=== PATIENT | male | born 1945 | race American Indian/Alaskan Native ===

== ENCOUNTER → 2018-03-17 | Day surgery (SDC) | payer MEDICARE, OTHER ==
[~2018-03-17] MED LIST: Midazolam 1 MG/ML 2 ML SDV IV ONE; Midazolam 1 MG/ML 2 ML SDV ONE; Sodium Chloride 0.9% 10 ML Syringe FLUSH PRN; fentaNYL 100 MCG/2 ML SDV IV ONE; fentaNYL 100 MCG/2 ML SDV ONE
[2018-03-17] MEDS: fentaNYL 100 MCG/2 ML SDV IV ONE ×2 (07:54→07:55)
[2018-03-17] MEDS: Midazolam 1 MG/ML 2 ML SDV IV ONE ×2 (07:55→07:56)
[2018-03-17] MEDS: Dextrose 5%-0.45% NaCl 1,000 ML IV SCH (08:11)
--- NOTE | 2018-03-17 10:20 | OR ---
DATE: 03/17/2018 PROCEDURE: Total colonoscopy. INSTRUMENT USED: CF-H180AL Olympus video colonoscope. PREMEDICATIONS: Fentanyl 100 mcg intravenous, Versed 2 mg intravenous. Nasal O2 cannula. The procedure was done under pulse oximetry, BP recording, and mini bar attendant. INDICATION: The patient with rectal bleeding. Colonoscopic examination is done for detection of any polypoid lesions and removal. Endoscopic hemostasis therapy if needed. DESCRIPTION OF PROCEDURE: Initial rectal exam was unremarkable. Rigid anoscopy showed small internal hemorrhoids without bleeding from them. The colonoscope was passed with ease. Diverticula were noted including one at the proximal ascending colon. No stricture. No vascular ectasia. No large isolated ulcerations seen. No evidence of diffuse inflammatory bowel disease in the form of friability, contact bleeding, or ulcerations. No polyp or tumor mass identified. The scope was passed with ease up to the ileocecal area. Photographs were taken of the normal-appearing cecum identified by landmarks of appendiceal orifice and double-bulged ileocecal folds. No bleeding was noted from any of the visualized areas at the commencement of the examination. There was moderate amount of fecal material that had to be aspirated clear. Probing the proximal sides of folds and flexures, using adequate distention and clearing up the stool material, withdrawal of the scope was made. [id number] time over 6 minutes. No bleeding was noted at the time of completion of examination. IMPRESSION: 1. Internal hemorrhoids. 2. Diverticulosis. The patient tolerated the procedure well. [facility] /[id number]
[2018-03-17 11:07] VITALS: BP 104/51
--- NOTE | 2018-03-17 13:47 | LETTER ---
03/17/[address] [facility] [address] [place] [address] RE: KEATON REEVES : [address] Leal: Mr. Keaton Reeves had a colonoscopic examination done this morning and he tolerated the procedure well. I herewith send a copy of the endoscopy note and photographs for your review. Thank you. Sincerely, [facility] /[id number]
== END ==
LOC: DL.ENDO 07:08
PROVIDERS: ATTEND Internal Medicine Gastroenterology
DX: K62.5 Hemorrhage of anus and rectum (principal); K57.30 Diverticulosis of large intestine without perforation or abscess without bleeding; K64.8 Other hemorrhoids; E11.9 Type 2 diabetes mellitus without complications; E78.5 Hyperlipidemia, unspecified; I10 Essential (primary) hypertension; N52.9 Male erectile dysfunction, unspecified; Z88.0 Allergy status to penicillin; Z80.0 Family history of malignant neoplasm of digestive organs; Z79.82 Long term (current) use of aspirin; Z79.84 Long term (current) use of oral hypoglycemic drugs; Z79.899 Other long term (current) drug therapy
CPT/HCPCS: 45378; J2250; J3010; J7042

== ENCOUNTER 2018-04-01 19:25 | Emergency (ER) | payer MEDICARE, OTHER ==
[2018-04-01] MEDS ORDERED: Azithromycin 250 MG Tab PO ONE (22:21)
--- NOTE | 2018-04-01 22:24 | EDM.PDOC ---
ED HPI GENERAL MEDICAL PROBLEM - General Chief Complaint: ENT Problem Stated Complaint: STREP THORAT? [id number] Time Seen by Provider: 04/01/18 22:22 Source of Information: Reports: Patient History Limitations: Reports: No Limitations - History of Present Illness INITIAL COMMENTS - FREE TEXT/NARRATIVE: sore throat hard to swallow Throat Pain Score (Numeric/FACES): 8 - Related Data Allergies Allergy/AdvReac Type Severity Reaction Status Date / Time Penicillins Allergy Cannot Verified 03/17/18 07:37 Remember Home Meds: Home Meds Aspirin [[place] Aspirin] 81 mg PO DAILY 11/06/15 [History] Latanoprost [Xalatan 0.005% Ophth Soln] 1 drop EYEBOTH BEDTIME 11/06/15 [History ] Lisinopril 40 mg PO DAILY 11/06/15 [History] hydroCHLOROthiazide [Hydrochlorothiazide] 50 mg PO DAILY 11/06/15 [History] metFORMIN HCl [Metformin HCl] 500 mg PO BID 11/06/15 [History] Simvastatin 20 mg PO BEDTIME 03/15/18 [History] Past Medical History HEENT History: Reports: Cataract, Glaucoma, Other (See Below) Other HEENT History: mild hearing loss Cardiovascular History: Reports: High Cholesterol, Hypertension Respiratory History: Reports: None Genitourinary History: Reports: None Musculoskeletal History: Reports: None Neurological History: Reports: None Psychiatric History: Reports: None Endocrine/Metabolic History: Reports: Diabetes, Type II Hematologic History: Reports: None Immunologic History: Reports: None Oncologic (Cancer) History: Reports: None Dermatologic History: Reports: None - Past Surgical History Head Surgeries/Procedures: Reports: None HEENT Surgical History: Reports: None Cardiovascular Surgical History: Reports: Other (See Below) Other Cardiovascular Surgeries/Procedures: stress test last 2016 Respiratory Surgical History: Reports: None Male Surgical History: Reports: None Endocrine Surgical History: Reports: None Neurological Surgical History: Reports: None Musculoskeletal Surgical History: Reports: None Oncologic Surgical History: Reports: None Dermatological Surgical History: Reports: None Social & Family History - Family History Family Medical History: Noncontributory - Tobacco Use Smoking Status *Q: Never Smoker - Caffeine Use Caffeine Use: Reports: Coffee Caffeine Use Comment: several cups daily - Recreational Drug Use Recreational Drug Use: No ED ROS ENT - Review of Systems Review Of Systems: ROS reveals no pertinent complaints other than HPI. ED EXAM, ENT - Physical Exam Exam: See Below Exam Limited By: No Limitations General Appearance: Alert, WD/WN, Mild Distress, Other (discomfort) Ears: Hearing Grossly Normal Mouth/Throat: Pharyngeal Erythema, Tonsillar Erythema, Tonsillar Swelling Head: Atraumatic Neck: Non-Tender, Full Range of Motion Respiratory/Chest: No Respiratory Distress Cardiovascular: Regular Rate, Rhythm GI/Abdominal: Soft, Non-Tender Neurological: Alert, Oriented, Normal Cognition, Normal Gait, No Motor/Sensory Deficits Psychiatric: Normal Affect, Normal Mood Skin: Warm, Dry, Normal Color Lymphatic: No Adenopathy Course - Vital Signs Last Recorded V/S: Last Vital Signs Temp 36.1 C 04/01/18 21:46 Pulse 77 04/01/18 21:46 Resp 14 04/01/18 21:46 BP 154/87 H 04/01/18 21:46 Pulse Ox 99 04/01/18 21:46 - Orders/Labs/Meds Orders: Active Orders 24 hr Category Date Time Status CULTURE STREP A CONFIRMATION [RM] Stat Lab 04/01/18 21:37 Results STREP SCRN A RAPID W CULT CONF [RM] Stat Lab 04/01/18 21:37 Results Azithromycin [Zithromax] Med 04/01/18 22:21 Once 500 mg PO ONETIME ONE Departure - Departure Time of Disposition: 22:23 Disposition: Home, Self-Care 01 Condition: Good Clinical Impression: Tonsillitis - Discharge Information Instructions: Tonsillitis, [id number] Additional Instructions: 1) no solid foods for 4 to 5 days 2) have popsicle, jello, juice, soups, milk shakes 3) follow up at clinic rx given; [id number] - My Orders Last 24 Hours: My Active Orders 04/01/18 21:37 CULTURE STREP A CONFIRMATION [RM] Stat STREP SCRN A RAPID W CULT CONF [RM] Stat 04/01/18 22:21 Azithromycin [Zithromax] 500 mg PO ONETIME ONE - Assessment/Plan Last 24 Hours: My Active Orders 04/01/18 21:37 CULTURE STREP A CONFIRMATION [RM] Stat STREP SCRN A RAPID W CULT CONF [RM] Stat 04/01/18 22:21 Azithromycin [Zithromax] 500 mg PO ONETIME ONE
[2018-04-01 22:36] VITALS: BP 126/76
== END 2018-04-01 22:37 | disposition home or self-care (01) ==
LOC: DL.ED 19:25
DX: J03.90 Acute tonsillitis, unspecified (principal); I10 Essential (primary) hypertension; E11.9 Type 2 diabetes mellitus without complications; Z79.82 Long term (current) use of aspirin; Z79.84 Long term (current) use of oral hypoglycemic drugs; Z79.899 Other long term (current) drug therapy; Z88.0 Allergy status to penicillin
CPT/HCPCS: 87081; 87430; 99283; A9270

== ENCOUNTER 2018-10-26 19:15 | Emergency (ER) | payer BC, MEDICARE ==
--- NOTE | 2018-10-26 19:58 | EDM.PDOC ---
<SamaniegoZena - Last Filed: 10/26/18 20:48> ED HPI GENERAL MEDICAL PROBLEM - General Chief Complaint: Neck Problem Stated Complaint: NECK HURTING,COUGHING KENTRELL [id number] Time Seen by Provider: 10/26/18 19:48 - History of Present Illness INITIAL COMMENTS - FREE TEXT/NARRATIVE: Patient presenting to the ED for neck and cough. Reports neck pain started 2 weeks ago, reports it started after he slipped and fell on the ice. reports it is intermittent squeezing left lateral neck pain, 7/10 severity, non radiating, alleviated with tylenol and aggravated by turning the head to the right. Also reports having dry cough for past few months. Cough is worse when exposed to cigarette smoke. No other known alleviators or aggravators. Denies fever, chills, n/v, nasal congestion, vision change, nausea, vomiting, headaches, dizziness, numbness, weakness, chest pain,wheezing or sob. No other concerns. Onset: Gradual Location: Reports: Neck Neck Pain Score (Numeric/FACES): 10 - Related Data Allergies Allergy/AdvReac Type Severity Reaction Status Date / Time Penicillins Allergy Cannot Verified 10/26/18 19:32 Remember Home Meds: Home Meds Aspirin [[place] Aspirin] 81 mg PO DAILY 11/06/15 [History] Latanoprost [Xalatan 0.005% Ophth Soln] 1 drop EYEBOTH BEDTIME 11/06/15 [History ] Lisinopril 40 mg PO DAILY 11/06/15 [History] hydroCHLOROthiazide [Hydrochlorothiazide] 50 mg PO DAILY 11/06/15 [History] metFORMIN HCl [Metformin HCl] 500 mg PO BID 11/06/15 [History] Simvastatin 20 mg PO BEDTIME 03/15/18 [History] Past Medical History HEENT History: Reports: Cataract, Glaucoma, Other (See Below) Other HEENT History: mild hearing loss Cardiovascular History: Reports: High Cholesterol, Hypertension Respiratory History: Reports: None Genitourinary History: Reports: None Musculoskeletal History: Reports: None Neurological History: Reports: None Psychiatric History: Reports: None Endocrine/Metabolic History: Reports: Diabetes, Type II Hematologic History: Reports: None Immunologic History: Reports: None Oncologic (Cancer) History: Reports: None Dermatologic History: Reports: None - Past Surgical History Head Surgeries/Procedures: Reports: None HEENT Surgical History: Reports: None Cardiovascular Surgical History: Reports: Other (See Below) Other Cardiovascular Surgeries/Procedures: stress test last year 2016 Respiratory Surgical History: Reports: None Male Surgical History: Reports: None Endocrine Surgical History: Reports: None Neurological Surgical History: Reports: None Musculoskeletal Surgical History: Reports: None Oncologic Surgical History: Reports: None Dermatological Surgical History: Reports: None Social & Family History - Family History Family Medical History: Noncontributory - Tobacco Use Smoking Status *Q: Never Smoker - Caffeine Use Caffeine Use: Reports: Coffee, Soda Caffeine Use Comment: several cups daily - Recreational Drug Use Recreational Drug Use: No ED ROS GENERAL - Review of Systems Review Of Systems: ROS reveals no pertinent complaints other than HPI. ED EXAM, UPPER BACK/NECK PAIN - Physical Exam Exam Limited By: No Limitations General Appearance: Alert, WD/WN, No Apparent Distress Eye Exam: Bilateral Eye: EOMI, Normal Inspection Ears Exam: Normal External Exam Nose Exam: Normal Inspection Throat/Mouth Exam: Normal Inspection Head Exam: Atraumatic, Normocephalic Neck Exam: Tender Lateral, Other (no midline tenders, no pain w flexion or extension of the neck. Pain in left neck w right rotation of head) Cardiovascular/Respiratory: Regular Rate, Rhythm, Normal Breath Sounds, No Respiratory Distress, Other (no wheezing on rales on exam) Extremities: Normal Inspection, Normal Range of Motion, Non-Tender Neurologic: agricultural researcher II-XII nml As Tested, No Motor/Sensory Deficits, Alert, Normal Mood/Affect, Oriented x 3 Psychiatric: Normal Affect, Normal Mood Skin Exam: Normal Color Course - Vital Signs Last Recorded V/S: Last Vital Signs Temp 98.5 F 10/26/18 19:32 Pulse 100 10/26/18 19:32 Resp 22 H 10/26/18 19:32 BP 143/68 H 10/26/18 19:32 Pulse Ox 100 10/26/18 19:32 - Orders/Labs/Meds Orders: Active Orders 24 hr Category Date Time Status Orphenadrine [Norflex] Med 10/26/18 20:30 Active 60 mg IM Q12H Medication Orders Orphenadrine Citrate (Norflex) 60 mg IM Q12H [facility] Last Admin: 10/26/18 20:24 Dose: 60 mg Meds: Medications Generic Name Dose Route Start Last Admin Trade Name Freq PRN Reason Stop Dose Admin Orphenadrine Citrate 60 mg 10/26/18 20:30 10/26/18 20:24 Norflex IM 60 mg Q12H ARIELLE Administration Discontinued Medications Generic Name Dose Route Start Last Admin Trade Name Jimmy PARKSN Reason Stop Dose Admin Ketorolac Tromethamine 30 mg 10/26/18 20:17 10/26/18 20:25 Toradol IM 10/26/18 20:18 30 mg ONETIME ONE Administration - Re-Assessments/Exams Free Text/Narrative Re-Assessment/Exam: 10/26/18 20:19 will treat patient with Toradol and Norflex. 10/26/18 20:42 patient states his neck pain significantly improved with the above treatment. Pt requesting to be discharged. Departure - Departure Disposition: Home, Self-Care 01 Condition: Good Clinical Impression: Muscle spasm - Discharge Information *PRESCRIPTION DRUG MONITORING PROGRAM REVIEWED*: No *COPY OF PRESCRIPTION DRUG MONITORING REPORT IN PATIENT SYLVESTER: Not Applicable Instructions: Muscle Cramps and Spasms, Cervical Sprain, [id number] Forms: ED Department Discharge Additional Instructions: Take ibuprofen for neck pain. May take Flexeril to help relax the neck muscle. Flexeril can make you drowsy/tired, avoid taking flexeril if you are going to be operating machinery or equipment. Cough etiology could be due to ACEi, discuss switching HTN medication with PCP. Follow up with PCP within 1 week. Return to ED if symptoms do not improve or worsen. Patient agrees with the above plan. - My Orders Last 24 Hours: My Active Orders 10/26/18 20:30 Orphenadrine [Norflex] 60 mg IM Q12H - Assessment/Plan Last 24 Hours: My Active Orders 10/26/18 20:30 Orphenadrine [Norflex] 60 mg IM Q12H <Jana Titus - Last Filed: 10/26/18 20:51> ED ROS GENERAL - Review of Systems Review Of Systems: ROS reveals no pertinent complaints other than HPI. ED EXAM, UPPER BACK/NECK PAIN - Physical Exam Exam: See Below Course - Re-Assessments/Exams Free Text/Narrative Re-Assessment/Exam: 10/26/18 20:50 I saw and evaluated the patient. Discussed with resident and agree with resident s findings and plan as documented in the residents note. Departure - Departure Time of Disposition: 20:48
[2018-10-26] MEDS ORDERED: Ketorolac 30 MG/ML SDV IM ONE (20:17)
[2018-10-26 20:52] VITALS: BP 146/73
== END 2018-10-26 20:55 | disposition home or self-care (01) ==
LOC: DL.ED 19:15
DX: M62.838 Other muscle spasm (principal); E11.9 Type 2 diabetes mellitus without complications; I10 Essential (primary) hypertension; Z88.0 Allergy status to penicillin; Z79.899 Other long term (current) drug therapy
CPT/HCPCS: 96372; 99283; J1885; J2360

== ENCOUNTER 2019-03-21 21:19 | Emergency (ER) | payer MEDICARE, BC ==
[2019-03-21 21:31] VITALS: BP 156/63
[2019-03-21] MEDS ORDERED: Ketorolac 30 MG/ML SDV IVPUSH ONE (21:49)
--- NOTE | 2019-03-21 21:56 | EDM.PDOC ---
ED HPI GENERAL MEDICAL PROBLEM - General Chief Complaint: Neck Problem Stated Complaint: PAIN IN NECK LEFT BACK PER PT. Time Seen by Provider: 03/21/19 21:45 Source of Information: Reports: Patient History Limitations: Reports: No Limitations - History of Present Illness INITIAL COMMENTS - FREE TEXT/NARRATIVE: This 73 yo male patient reports to the ED with left sided neck pain with some pain radiating to his left arm and left leg. The patient reports his symptoms started back in September or October. The patient reports he took Tylenol, but has not had any symptom relief. The patient was seen in September for similar symptoms, but has not followed up with his primary care. The patient reports no additional injury to the area. Onset: Unknown/Unsure Duration: Constant Location: Reports: Neck (left sided) Quality: Reports: Ache, Dull Severity: Moderate Improves with: Reports: None Worsens with: Reports: None Context: Reports: Other Associated Symptoms: Reports: No Other Symptoms - Related Data Allergies Allergy/AdvReac Type Severity Reaction Status Date / Time Penicillins Allergy Cannot Verified 02/04/19 22:52 Remember Home Meds: Home Meds Aspirin [[place] Aspirin] 81 mg PO DAILY 11/06/15 [History] Latanoprost [Xalatan 0.005% Ophth Soln] 1 drop EYEBOTH BEDTIME 11/06/15 [History ] Lisinopril 40 mg PO DAILY 11/06/15 [History] hydroCHLOROthiazide [Hydrochlorothiazide] 50 mg PO DAILY 11/06/15 [History] metFORMIN HCl [Metformin HCl] 1,500 mg PO DAILY 11/06/15 [History] Simvastatin 20 mg PO BEDTIME 03/15/18 [History] Past Medical History HEENT History: Reports: Cataract, Glaucoma, Other (See Below) Other HEENT History: mild hearing loss Cardiovascular History: Reports: High Cholesterol, Hypertension Respiratory History: Reports: None Gastrointestinal History: Reports: None Genitourinary History: Reports: None Musculoskeletal History: Reports: None Neurological History: Reports: None Psychiatric History: Reports: None Endocrine/Metabolic History: Reports: Diabetes, Type II Hematologic History: Reports: None Immunologic History: Reports: None Oncologic (Cancer) History: Reports: None Dermatologic History: Reports: None - Infectious Disease History Infectious Disease History: Reports: None - Past Surgical History Head Surgeries/Procedures: Reports: None HEENT Surgical History: Reports: None Cardiovascular Surgical History: Reports: Other (See Below) Other Cardiovascular Surgeries/Procedures: stress test last year 2016 Respiratory Surgical History: Reports: None Male Surgical History: Reports: None Endocrine Surgical History: Reports: None Neurological Surgical History: Reports: None Musculoskeletal Surgical History: Reports: None Oncologic Surgical History: Reports: None Dermatological Surgical History: Reports: None Social & Family History - Family History Family Medical History: Noncontributory - Tobacco Use Smoking Status *Q: Never Smoker - Caffeine Use Caffeine Use: Reports: Coffee, Soda Caffeine Use Comment: several cups daily - Recreational Drug Use Recreational Drug Use: No ED ROS GENERAL - Review of Systems Review Of Systems: ROS reveals no pertinent complaints other than HPI. ED EXAM, GENERAL - Physical Exam Exam: See Below Exam Limited By: No Limitations General Appearance: Alert, WD/WN, Mild Distress Eye Exam: Bilateral Eye: EOMI, Normal Inspection, PERRL Ears: Normal External Exam, Normal Canal, Hearing Grossly Normal, Normal TMs Nose: Normal Inspection, Normal Mucosa, No Blood Throat/Mouth: Normal Inspection, Normal Lips, Normal Teeth, Normal Gums, Normal Oropharynx, Normal Voice, No Airway Compromise Head: Atraumatic, Normocephalic Neck: Normal Inspection, Supple, Limited Range of Motion (due to left sided neck pain), Tender Lateral (left posterior ) Respiratory/Chest: No Respiratory Distress, Lungs Clear, Normal Breath Sounds, No Accessory Muscle Use, Chest Non-Tender Cardiovascular: Normal Peripheral Pulses, Regular Rate, Rhythm, No Edema, No Gallop, No JVD, No Murmur, No Rub GI/Abdominal: Normal Bowel Sounds, Soft, Non-Tender, No Organomegaly, No Distention, No Abnormal Bruit, No Mass (Male) Exam: Deferred Rectal (Males) Exam: Deferred Back Exam: Normal Inspection, Full Range of Motion, NT Extremities: Normal Inspection, Normal Range of Motion, Non-Tender, Normal Capillary Refill, No Pedal Edema Neurological: Alert, Oriented, CN II-XII Intact, Normal Cognition, Normal Gait, Normal Reflexes, No Motor/Sensory Deficits Psychiatric: Normal Affect, Normal Mood Skin Exam: Warm, Dry, Intact, Normal Color, No Rash Lymphatic: No Adenopathy Course - Vital Signs Last Recorded V/S: Last Vital Signs Temp 35.8 C 03/21/19 21:30 Pulse 60 03/21/19 21:30 Resp 14 03/21/19 21:30 BP 156/63 H 03/21/19 21:30 Pulse Ox 100 03/21/19 21:30 - Orders/Labs/Meds Orders: Active Orders 24 hr Category Date Time Status Orphenadrine [Norflex] Med 03/21/19 22:00 Ordered 60 mg IM Q12H Medication Orders Orphenadrine Citrate (Norflex) 60 mg IM Q12H [facility] Last Admin: 03/21/19 22:03 Dose: 60 mg Meds: Medications Generic Name Dose Route Start Last Admin Trade Name Freq PRN Reason Stop Dose Admin Orphenadrine Citrate 60 mg 03/21/19 22:00 03/21/19 22:03 Norflex IM 60 mg Q12H ARIELLE Administration Discontinued Medications Generic Name Dose Route Start Last Admin Trade Name Freq PRN Reason Stop Dose Admin Ketorolac Tromethamine 30 mg 03/21/19 21:49 03/21/19 22:01 Toradol IVPUSH 03/21/19 21:50 30 mg ONETIME ONE Administration Departure - Departure Time of Disposition: 22:17 Disposition: Home, Self-Care 01 Condition: Fair Clinical Impression: Neck muscle strain Qualifiers: Encounter type: initial encounter Qualified Code(s): S16.1XXA - Strain of muscle, fascia and tendon at neck level, initial encounter - Discharge Information *PRESCRIPTION DRUG MONITORING PROGRAM REVIEWED*: Not Applicable *COPY OF PRESCRIPTION DRUG MONITORING REPORT IN PATIENT SYLVESTER: Not Applicable Instructions: Cervical Sprain, [id number] Forms: ED Department Discharge Care Plan Goals: The patient was advised of the examination results during the visit. The patient was given injections of Toradol and Norflex while in the ED with some symptom relief. The patient was encouraged to follow-up with his primary care facility for continued evaluation and further treatment. If the patient has any additional symptoms or concerns, the patient should either return to the emergency department or visit his primary care facility. - My Orders Last 24 Hours: My Active Orders 03/21/19 22:00 Orphenadrine [Norflex] 60 mg IM Q12H - Assessment/Plan Last 24 Hours: My Active Orders 03/21/19 22:00 Orphenadrine [Norflex] 60 mg IM Q12H
== END 2019-03-21 22:25 | disposition home or self-care (01) ==
LOC: DL.ED 21:19
DX: S16.1XXA Strain of muscle, fascia and tendon at neck level, initial encounter (principal); E11.9 Type 2 diabetes mellitus without complications; I10 Essential (primary) hypertension; E78.00 Pure hypercholesterolemia, unspecified; Z79.82 Long term (current) use of aspirin; Z79.899 Other long term (current) drug therapy; Z79.84 Long term (current) use of oral hypoglycemic drugs; Z88.0 Allergy status to penicillin; X58.XXXA Exposure to other specified factors, initial encounter
CPT/HCPCS: 96372; 99282; J1885; J2360

== ENCOUNTER 2019-06-23 17:26 | Emergency (ER) | payer MEDICARE, BC ==
[2019-06-23 18:47] LABS: ANION GAP 13.7; CHLORIDE,CL 97 mmol/L (101-111); SODIUM,NA 131 mmol/L (135-145)
--- NOTE | 2019-06-23 19:06 | EDM.PDOC ---
Scribed by Gita Reece 06/23/19 190 for Caitie Reynolds MD <Caitie Reynolds - Last Filed: 06/23/19 19:02> ED HPI GENERAL MEDICAL PROBLEM - General Chief Complaint: Respiratory Problem Stated Complaint: HARD TIME BREATHING, LEGS HURTING Time Seen by Provider: 06/23/19 17:47 Source of Information: Reports: Patient, RN, RN Notes Reviewed History Limitations: Reports: No Limitations - History of Present Illness INITIAL COMMENTS - FREE TEXT/NARRATIVE: Patient presents to ER with shortness of breath that has been persistent for 2 months and today is worse. Patient states leg pain as well as weakness to legs when shoveling snow. Onset: Gradual Duration: Constant Location: Reports: Chest, Other (extremities) Quality: Reports: Ache Severity: Moderate Improves with: Reports: None Worsens with: Reports: None Associated Symptoms: Reports: No Other Symptoms Treatments MAILROOM ASSOCIATE: Reports: Acetaminophen Other Treatments MAILROOM ASSOCIATE: 1000 mg around 1330. - Related Data Allergies Allergy/AdvReac Type Severity Reaction Status Date / Time Penicillins Allergy Cannot Verified 02/04/19 22:52 Remember Home Meds: Home Meds Aspirin [[place] Aspirin] 81 mg PO DAILY 11/06/15 [History] Latanoprost [Xalatan 0.005% Ophth Soln] 1 drop EYEBOTH BEDTIME 11/06/15 [History ] Lisinopril 40 mg PO DAILY 11/06/15 [History] metFORMIN HCl [Metformin HCl] 1,500 mg PO DAILY 11/06/15 [History] Simvastatin 20 mg PO BEDTIME 03/15/18 [History] Past Medical History HEENT History: Reports: Cataract, Glaucoma, Other (See Below) Other HEENT History: mild hearing loss Cardiovascular History: Reports: High Cholesterol, Hypertension Respiratory History: Reports: None Gastrointestinal History: Reports: None Genitourinary History: Reports: None Musculoskeletal History: Reports: None Neurological History: Reports: None Psychiatric History: Reports: None Endocrine/Metabolic History: Reports: Diabetes, Type II Hematologic History: Reports: None Immunologic History: Reports: None Oncologic (Cancer) History: Reports: None Dermatologic History: Reports: None - Infectious Disease History Infectious Disease History: Reports: None - Past Surgical History Head Surgeries/Procedures: Reports: None HEENT Surgical History: Reports: None Cardiovascular Surgical History: Reports: Other (See Below) Other Cardiovascular Surgeries/Procedures: stress test last year 2016 Respiratory Surgical History: Reports: None Male Surgical History: Reports: None Endocrine Surgical History: Reports: None Neurological Surgical History: Reports: None Musculoskeletal Surgical History: Reports: None Oncologic Surgical History: Reports: None Dermatological Surgical History: Reports: None Social & Family History - Family History Family Medical History: Noncontributory - Caffeine Use Caffeine Use: Reports: Coffee, Soda Caffeine Use Comment: several cups daily - Living Situation & Occupation Living situation: Reports: with Family ED ROS GENERAL - Review of Systems Review Of Systems: Comprehensive ROS is negative, except as noted in HPI. ED EXAM, GENERAL - Physical Exam Exam: See Below Exam Limited By: No Limitations General Appearance: Alert, WD/WN, No Apparent Distress Eye Exam: Bilateral Eye: Abnormal EOM, Normal Inspection, PERRL Ears: Normal External Exam, Hearing Grossly Normal Nose: Normal Inspection, Normal Mucosa, No Blood Throat/Mouth: Normal Inspection, Normal Lips, Normal Oropharynx, Normal Voice, No Airway Compromise Head: Atraumatic, Normocephalic Neck: Limited Range of Motion, Tender Lateral, Tender Midline Respiratory/Chest: No Respiratory Distress, Lungs Clear, No Accessory Muscle Use , Chest Non-Tender, Decreased Breath Sounds Cardiovascular: Regular Rate, Rhythm GI/Abdominal: Normal Bowel Sounds, Soft, Non-Tender, No Organomegaly, No Distention, No Abnormal Bruit, No Mass (Male) Exam: Deferred Rectal (Males) Exam: Deferred Back Exam: Normal Inspection, Full Range of Motion, NT Extremities: Normal Inspection, Normal Range of Motion, Non-Tender, Normal Capillary Refill, No Pedal Edema Neurological: Alert, Oriented, CN II-XII Intact, Normal Cognition, Normal Gait, No Motor/Sensory Deficits Psychiatric: Normal Affect, Normal Mood Skin Exam: Warm, Dry, Intact, Normal Color, No Rash EKG INTERPRETATION EKG Date: 06/23/19 Time: 18:23 Rhythm: Other (SR with PAC) Rate (Beats/Min): 75 [place]: Normal P-Wave: Present QRS: Normal ST-T: Normal QT: Normal Comparison: NA - No Prior EKG Course - Vital Signs Last Recorded V/S: Last Vital Signs Temp 97.8 F 06/23/19 19:50 Pulse 78 06/23/19 19:50 Resp 16 06/23/19 19:50 BP 125/65 06/23/19 19:50 Pulse Ox 99 06/23/19 19:50 - Orders/Labs/Meds Orders: Active Orders 24 hr Category Date Time Status EKG 12 Lead [EKG Documentation Completion] [RC] STAT Care 06/23/19 18:12 Active Chest 2V [CR] Stat Exams 06/23/19 18:04 Taken 6 Minute Walk Test [RT Physical Performance Test] [ Oth 06/23/19 18:04 Active RESPCARE] Stat Labs: Laboratory Tests 06/23/19 06/23/19 Range/Units 18:19 18:19 WBC 7.4 (5.0-10.0) 10^3/uL RBC 4.13 L (4.6-6.2) 10^6/uL Hgb 12.7 L (14.0-18.0) g/dL Hct 36.3 L (40.0-54.0) % MCV 87.9 (80-100) fL MCH 30.8 (27.0-34.0) pg MCHC 35.0 (33.0-35.0) g/dL Plt Count 303 (150-450) 10^3/uL Neut % (Auto) 75.4 H (42.2-75.2) % Lymph % (Auto) 12.8 L (20.5-50.1) % [place] % (Auto) 8.9 H (2-8) % Eos % (Auto) 2.2 (1.0-3.0) % Baso % (Auto) 0.7 (0.0-1.0) % Sodium 131 L (135-145) mmol/L Potassium 3.7 (3.6-5.0) mmol/L Chloride 97 L (101-111) mmol/L Carbon Dioxide 24.0 (21.0-31.0) mmol/L Anion Gap 13.7 BUN 10 (7-18) mg/dL Creatinine 1.0 (0.6-1.3) mg/dL Est Cr Clr Drug Dosing 58.48 mL/min Estimated GFR (MDRD) > 60 BUN/Creatinine Ratio 10.00 Glucose 138 H (74-105) mg/dL Calcium 9.1 (8.4-10.2) mg/dl Total Bilirubin 0.7 (0.2-1.0) mg/dL AST 24 (10-42) IU/L ALT 20 (10-60) IU/L Alkaline Phosphatase 70 (42-121) IU/L Troponin I 0.02 (0.00-0.02) ng/ml B-Natriuretic Peptide 88 (0-100) pg/ml Total Protein 7.5 (6.7-8.2) g/dl Albumin 4.0 (3.2-5.5) g/dl Globulin 3.5 Albumin/Globulin Ratio 1.14 - Re-Assessments/Exams Free Text/Narrative Re-Assessment/Exam: 06/23/19 19:05 Care of pt transferred to Bessie FLEMING at 1900HR shift change. Departure - Departure Disposition: Home, Self-Care 01 Clinical Impression: SOB (shortness of breath) on exertion, Chronic neck pain - Discharge Information Instructions: Radicular Pain Forms: ED Department Discharge Additional Instructions: Follow up clinic next week urgent follow up symptoms worsen warm pack to neck as needed tylenol 650mg every 6 hours as needed for discomfort monitor blood sugars <Bessie Silvestre - Last Filed: 06/24/19 05:39> Course - Radiology Interpretation Free Text/Narrative:: [facility] - Final Radiology Report Call: [phone] assistance Online chat: [email or web address] Name: MORAIMA LOCKETT Age: 73Years M Date: 06/23/2019 SSN: -- : 1945 Study: XR CHEST 2 VIEWS FRONTAL & LAT Requesting Physician: CAITIE REYNOLDS Images: 2 Addl Studies: Provided Clinical History: Contrast: Contrast Medium: Contrast Amount: Contrast Method: CONFIDENTIALITY STATEMENT This report is intended only for use by the referring physician, and only in accordance with law. If you received this in error, call [phone]. Page 1 of 1 PROCEDURE INFORMATION: Exam: XR Chest, 2 Views Exam date and time: 06/23/2019 6:50 PM Age: 73 years old Clinical history: Shortness of breath TECHNIQUE: Imaging protocol: XR of the chest Views: 2 views. COMPARISON: CR Chest 2V 11/06/2015 8:59 PM FINDINGS: Lungs: Unremarkable. No consolidation. Pleural space: Unremarkable. No pleural effusion. No pneumothorax. Heart/Mediastinum: Unremarkable. No cardiomegaly. Bones/joints: Unremarkable. IMPRESSION: No acute findings. Thank you for allowing us to participate in the care of your patient. Dictated and Authenticated by: Gordon Street MD - Re-Assessments/Exams Free Text/Narrative Re-Assessment/Exam: Results of studies reviewed with patient, Home with family. Departure - Departure Time of Disposition: 19:39 - Discharge Information *PRESCRIPTION DRUG MONITORING PROGRAM REVIEWED*: No *COPY OF PRESCRIPTION DRUG MONITORING REPORT IN PATIENT SYLVESTER: No I have read and agree with the documentation that has been completed regarding this visit. By signing this record, I attest that the documentation was completed in my physical presence and is an accurate record of the encounter.
[2019-06-23 20:22] VITALS: BP 125/65; PULSE 78
== END 2019-06-23 19:51 | disposition home or self-care (01) ==
LOC: DL.ED 17:26
DX: R06.02 Shortness of breath (principal); M54.2 Cervicalgia; G89.29 Other chronic pain; H40.9 Unspecified glaucoma; E78.00 Pure hypercholesterolemia, unspecified; I10 Essential (primary) hypertension; E11.9 Type 2 diabetes mellitus without complications; Z88.0 Allergy status to penicillin; Z79.82 Long term (current) use of aspirin; Z79.899 Other long term (current) drug therapy; Z79.84 Long term (current) use of oral hypoglycemic drugs
CPT/HCPCS: 36415; 71046; 80053; 83880; 84484; 85025; 93005; 93010; 99284; 99285-25

== ENCOUNTER 2019-08-17 10:51 | Emergency (ER) | payer BC, MEDICARE ==
[2019-08-17 11:01] VITALS: BP 129/58; PULSE 102
--- NOTE | 2019-08-17 11:03 | EDM.PDOC ---
ED HPI GENERAL MEDICAL PROBLEM - General Chief Complaint: Respiratory Problem Stated Complaint: HARD TIME BREATHING Time Seen by Provider: 08/17/19 11:03 Source of Information: Reports: Patient, Family (), Old Records, RN, RN Notes Reviewed History Limitations: Reports: No Limitations - History of Present Illness INITIAL COMMENTS - FREE TEXT/NARRATIVE: 74 year old male presents to ER from work by POV with c/o of shortness of breath that began this morning at work. 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 Patient denies chest pain, cough, fever, palpitations, edema, orthopnea, or syncope. Patient reports that 911 was called EMS did evaluate him, but found no medical emergency. Pt states he slipped and fell down about 3 to 4 days ago, but did not hurt his chest or ribs. He did have soreness in the left leg, testicles, and neck, but states that is almost resolved now. Onset: Today Duration: Constant Location: Reports: Chest Quality: Reports: Other (Denies pain) Improves with: Reports: None Worsens with: Reports: Other (Activity) Associated Symptoms: Reports: No Other Symptoms - Related Data Allergies Allergy/AdvReac Type Severity Reaction Status Date / Time Penicillins Allergy Cannot Verified 08/17/19 11:01 Remember Home Meds: Home Meds Aspirin [[place] Aspirin] 81 mg PO DAILY 11/06/15 [History] Latanoprost [Xalatan 0.005% Ophth Soln] 1 drop EYEBOTH BID 11/06/15 [History] Lisinopril 40 mg PO DAILY 11/06/15 [History] metFORMIN HCl [Metformin HCl] 1,500 mg PO DAILY 11/06/15 [History] Simvastatin 20 mg PO BEDTIME 03/15/18 [History] Tamsulosin [Tamsulosin 24 Hr] 0.4 mg PO DAILY 08/17/19 [History] Past Medical History HEENT History: Reports: Cataract, Glaucoma, Other (See Below) Other HEENT History: mild hearing loss Cardiovascular History: Reports: High Cholesterol, Hypertension Respiratory History: Reports: None Gastrointestinal History: Reports: None Genitourinary History: Reports: None Musculoskeletal History: Reports: None Neurological History: Reports: None Psychiatric History: Reports: None Endocrine/Metabolic History: Reports: Diabetes, Type II Hematologic History: Reports: None Immunologic History: Reports: None Oncologic (Cancer) History: Reports: None Dermatologic History: Reports: None - Infectious Disease History Infectious Disease History: Reports: None - Past Surgical History Head Surgeries/Procedures: Reports: None HEENT Surgical History: Reports: None Cardiovascular Surgical History: Reports: Other (See Below) Other Cardiovascular Surgeries/Procedures: stress test last year 2016 Respiratory Surgical History: Reports: None Male Surgical History: Reports: None Endocrine Surgical History: Reports: None Neurological Surgical History: Reports: None Musculoskeletal Surgical History: Reports: None Oncologic Surgical History: Reports: None Dermatological Surgical History: Reports: None Social & Family History - Family History Family Medical History: Noncontributory - Caffeine Use Caffeine Use: Reports: Coffee, Soda Caffeine Use Comment: several cups daily - Living Situation & Occupation Living situation: Reports: , with Spouse Occupation: Employed ED ROS GENERAL - Review of Systems Review Of Systems: Comprehensive ROS is negative, except as noted in HPI. ED EXAM, GENERAL - Physical Exam Exam: See Below Exam Limited By: No Limitations General Appearance: Alert, WD/WN, No Apparent Distress, Anxious Eye Exam: Bilateral Eye: Normal Inspection Nose: Normal Inspection Throat/Mouth: Normal Inspection, Normal Lips, Normal Voice, No Airway Compromise Head: Atraumatic, Normocephalic Neck: Normal Inspection, Supple, Non-Tender, Full Range of Motion. No: Lymphadenopathy (L), Lymphadenopathy (R) Respiratory/Chest: No Respiratory Distress, Lungs Clear, Normal Breath Sounds, No Accessory Muscle Use, Chest Non-Tender Cardiovascular: Normal Peripheral Pulses, Regular Rate, Rhythm, No Edema, No JVD , No Murmur GI/Abdominal: Normal Bowel Sounds, Soft, Non-Tender, No Organomegaly, No Distention, No Abnormal Bruit, No Mass Back Exam: Normal Inspection, Full Range of Motion. No: CVA Tenderness (L), CVA Tenderness (R) Extremities: Normal Inspection, Normal Range of Motion, Non-Tender, Normal Capillary Refill, No Pedal Edema Neurological: Alert, Oriented, CN II-XII Intact, Normal Cognition, Normal Gait, No Motor/Sensory Deficits Psychiatric: Anxious, Flat Affect Skin Exam: Warm, Dry, Intact, Normal Color, No Rash EKG INTERPRETATION EKG Date: 08/17/19 Time: 11:40 Rhythm: NSR [place]: Normal P-Wave: Present QRS: Normal ST-T: Normal QT: Normal Comparison: NA - No Prior EKG Course - Vital Signs Last Recorded V/S: Last Vital Signs Temp 97.9 F 08/17/19 10:57 Pulse 102 H 08/17/19 10:57 Resp 20 08/17/19 10:57 BP 129/58 L 08/17/19 10:57 Pulse Ox 100 08/17/19 10:57 Orthostatic Blood Pressure [ 131/70 Standing] Orthostatic Blood Pressure [ 117/70 Sitting] Orthostatic Blood Pressure [ 108/61 Supine] - Orders/Labs/Meds Orders: Active Orders 24 hr Category Date Time Status EKG 12 Lead [EKG Documentation Completion] [RC] STAT Care 08/17/19 11:13 Active Orthostatic Vital Signs [RC] ASDIRECTED Care 08/17/19 11:13 Active Chest 1V Frontal [CR] Stat Exams 08/17/19 11:12 Taken Labs: Laboratory Tests 08/17/19 08/17/19 08/17/19 Range/Units 11:27 11:27 11:27 WBC 10.1 H (5.0-10.0) 10^3/uL RBC 3.92 L (4.6-6.2) 10^6/uL Hgb 12.1 L (14.0-18.0) g/dL Hct 35.1 L (40.0-54.0) % MCV 89.5 (80-100) fL MCH 30.9 (27.0-34.0) pg MCHC 34.5 (33.0-35.0) g/dL Plt Count 258 (150-450) 10^3/uL Neut % (Auto) 85.5 H (42.2-75.2) % Lymph % (Auto) 6.2 L (20.5-50.1) % [place] % (Auto) 6.0 (2-8) % Eos % (Auto) 2.0 (1.0-3.0) % Baso % (Auto) 0.3 (0.0-1.0) % D-Dimer, Quantitative 288 (0-400) ng/mL Sodium 128 L (135-145) mmol/L Potassium 3.7 (3.6-5.0) mmol/L Chloride 97 L (101-111) mmol/L Carbon Dioxide 20.0 L (21.0-31.0) mmol/L Anion Gap 14.7 BUN 12 (7-18) mg/dL Creatinine 1.1 (0.6-1.3) mg/dL Est Cr Clr Drug Dosing 52.36 mL/min Estimated GFR (MDRD) > 60 BUN/Creatinine Ratio 10.90 Glucose 175 H (74-105) mg/dL Calcium 9.0 (8.4-10.2) mg/dl Total Bilirubin 0.7 (0.2-1.0) mg/dL AST 30 (10-42) IU/L ALT 19 (10-60) IU/L Alkaline Phosphatase 64 (42-121) IU/L Troponin I 0.05 (0.00-0.08) ng/mL Total Protein 7.0 (6.7-8.2) g/dl Albumin 3.8 (3.2-5.5) g/dl Globulin 3.2 Albumin/Globulin Ratio 1.19 - Radiology Interpretation Free Text/Narrative:: [facility] Final Radiology Report Call: [phone] assistance Online chat: [email or web address] Name: MORAIMA LOCKETT Age: 74Years M Date: 08/17/2019 SSN: -- : 1945 Study: XR CHEST 1 VIEW FRONTAL Requesting Physician: CAITIE GUSMAN Images: 1 Addl Studies: Provided Clinical History: Contrast: Contrast Medium: Contrast Amount: Contrast Method: CONFIDENTIALITY STATEMENT This report is intended only for use by the referring physician, and only in accordance with law. If you received this in error, call [phone]. Page 1 of 1 PROCEDURE INFORMATION: Exam: XR Chest, 1 View Exam date and time: 08/17/2019 11:31 AM Age: 74 years old Clinical indication: Chest pain TECHNIQUE: Imaging protocol: XR of the chest Views: 1 view. COMPARISON: CR Chest 2V 06/23/2019 6:50 PM FINDINGS: Lungs: Mid inspiratory effort with resultant low lung volumes. Pleural space: Unremarkable. No pleural effusion. No pneumothorax. Heart/Mediastinum: Unremarkable. No cardiomegaly. Bones/joints: Unremarkable. IMPRESSION: No acute findings. Thank you for allowing us to participate in the care of your patient. Dictated and Authenticated by: Ranjith Gomez MD 08/17/2019 12:08 PM Central Time ([place] & [place]) - Re-Assessments/Exams Free Text/Narrative Re-Assessment/Exam: 08/17/19 12:27 Pt presented with c/o shortness of breath with oxygen saturations 100%, negative cardiac work up, non-elevated D-dimer, and finding of chronic hyponatremia. I find no indication for any further work up at this time. I have advised the pt of the finding, and reassured him that his chest x-ray is normal , as are his exam, EKG, and labs with the exception of Na+. He agrees to rest today and tomorrow and will f/u in clinic next week. He is advised to return to the ER if he develops new symptoms, or is worse at any time. Departure - Departure Time of Disposition: 12:22 Disposition: Home, Self-Care 01 Condition: Good Clinical Impression: Shortness of breath, Chronic hyponatremia - Discharge Information *PRESCRIPTION DRUG MONITORING PROGRAM REVIEWED*: Not Applicable *COPY OF PRESCRIPTION DRUG MONITORING REPORT IN PATIENT SYLVESTER: Not Applicable Instructions: Shortness of Breath, Adult, [id number], Hyponatremia Forms: ED Department Discharge Additional Instructions: Eat more salt. Follow up in clinic next week for recheck of breathing and blood sodium level. Sepsis Event Note - Evaluation Sepsis Screening Result: No Definite Risk - Focused Exam Vital Signs: Vital Signs Temp Pulse Resp BP Pulse Ox 08/17/19 10:57 97.9 F 102 H 20 129/58 L 100 Date Exam was Performed: 08/17/19 Time Exam was Performed: 12:27 - My Orders Last 24 Hours: My Active Orders 08/17/19 11:12 Chest 1V Frontal [CR] Stat 08/17/19 11:13 EKG 12 Lead [EKG Documentation Completion] [RC] STAT Orthostatic Vital Signs [RC] ASDIRECTED - Assessment/Plan Last 24 Hours: My Active Orders 08/17/19 11:12 Chest 1V Frontal [CR] Stat 08/17/19 11:13 EKG 12 Lead [EKG Documentation Completion] [RC] STAT Orthostatic Vital Signs [RC] ASDIRECTED
[2019-08-17 11:55] LABS: ANION GAP 14.7; CHLORIDE,CL 97 mmol/L (101-111); SODIUM,NA 128 mmol/L (135-145)
== END 2019-08-17 12:38 | disposition home or self-care (01) ==
LOC: DL.ED 10:51
DX: R06.02 Shortness of breath (principal); E87.1 Hypo-osmolality and hyponatremia; E78.00 Pure hypercholesterolemia, unspecified; I10 Essential (primary) hypertension; E11.9 Type 2 diabetes mellitus without complications; Z88.0 Allergy status to penicillin; Z79.82 Long term (current) use of aspirin; Z79.899 Other long term (current) drug therapy; Z79.84 Long term (current) use of oral hypoglycemic drugs
CPT/HCPCS: 36415; 71045; 80053; 84484; 85025; 85379; 93005; 99285-25

== ENCOUNTER 2020-09-24 11:30 | Emergency (ER) | payer BC, MEDICARE ==
--- NOTE | 2020-09-24 11:35 | EDM.PDOC ---
ED HPI GENERAL MEDICAL PROBLEM - General Chief Complaint: Cardiovascular Problem Stated Complaint: AMBULANCE Time Seen by Provider: 09/24/20 11:34 Source of Information: Reports: Patient, EMS, Old Records, RN, RN Notes Reviewed, Other ([place] [employer]) History Limitations: Reports: No Limitations - History of Present Illness INITIAL COMMENTS - FREE TEXT/NARRATIVE: Pt sent from [facility] by ambulance for evaluation of SVT found incidentally during a routine clinic check up. Pt state he did not feel palpitations, CP, or any other symptoms. No prior Hx of arrhythmias. Pt states he did not feel dizzy or lightheaded, and had no idea that his heart was doing anything out of the ordinary. Currently in the ER he feels completely fine. In clinic his provider had him do a valsalva maneuver and he converted to a SR. Onset: Today Duration: Resolved Prior to Arrival Quality: Reports: Other (Denies pain) Improves with: Reports: None Worsens with: Reports: None Associated Symptoms: Reports: No Other Symptoms - Related Data Allergies Allergy/AdvReac Type Severity Reaction Status Date / Time Penicillins Allergy Cannot Verified 09/24/20 11:55 Remember Home Meds: Home Meds Aspirin [[place] Aspirin] 81 mg PO DAILY 11/06/15 [History] Latanoprost [Xalatan 0.005% Ophth Soln] 1 drop EYEBOTH BEDTIME 11/06/15 [History] Lisinopril 40 mg PO DAILY 11/06/15 [History] metFORMIN HCl [Metformin HCl] 1,500 mg PO DAILY 11/06/15 [History] Simvastatin 20 mg PO BEDTIME 03/15/18 [History] Tamsulosin [Tamsulosin 24 Hr] 0.4 mg PO DAILY 08/17/19 [History] Acetaminophen 325 mg PO Q6HR PRN 09/24/20 [History] Aspirin [Aspirin EC] 81 mg PO DAILY 09/24/20 [History] Brimonidine [Alphagan P 0.15% Ophth Soln] 1 drop EYEBOTH BID 09/24/20 [History] Carboxymethylcellulose Sodium [Refresh Tears 0.5%] 1 drop EYEBOTH BID 09/24/20 [History] Ferrous Sulfate 325 mg PO DAILY 09/24/20 [History] Hydrophilic Ointment [Aquaphilic Ointment] 1 applic TOP BID PRN 09/24/20 [History] Menthol/Methyl Salicylate [Icy Hot Cream] 1 applic TOP TID 09/24/20 [History] Sennosides/Docusate Sodium [Docusate Sodium-Sennosides Tab] 1 each PO BID PRN 09/24/20 [History] Past Medical History HEENT History: Reports: Cataract, Glaucoma, Other (See Below) Other HEENT History: mild hearing loss Cardiovascular History: Reports: High Cholesterol, Hypertension Respiratory History: Reports: None Gastrointestinal History: Reports: None Genitourinary History: Reports: None Musculoskeletal History: Reports: None Neurological History: Reports: None Psychiatric History: Reports: None Endocrine/Metabolic History: Reports: Diabetes, Type II Hematologic History: Reports: None Immunologic History: Reports: None Oncologic (Cancer) History: Reports: None Dermatologic History: Reports: None - Infectious Disease History Infectious Disease History: Reports: None - Past Surgical History Head Surgeries/Procedures: Reports: None HEENT Surgical History: Reports: None Cardiovascular Surgical History: Reports: Other (See Below) Other Cardiovascular Surgeries/Procedures: stress test last 2016 Respiratory Surgical History: Reports: None Male Surgical History: Reports: None Endocrine Surgical History: Reports: None Neurological Surgical History: Reports: None Musculoskeletal Surgical History: Reports: None Oncologic Surgical History: Reports: None Dermatological Surgical History: Reports: None Social & Family History - Family History Family Medical History: No Pertinent Family History - Caffeine Use Caffeine Use: Reports: Coffee, Soda Caffeine Use Comment: several cups daily - Living Situation & Occupation Living situation: Reports: , with Spouse Occupation: Employed ED ROS GENERAL - Review of Systems Review Of Systems: Comprehensive ROS is negative, except as noted in HPI. ED EXAM, GENERAL - Physical Exam Exam: See Below Exam Limited By: No Limitations General Appearance: Alert, WD/WN, No Apparent Distress Eye Exam: Bilateral Eye: EOMI, PERRL, Other (Conjunctival inflammation, chronically dry appearing eyes) Ears: Normal External Exam, Hearing Grossly Normal Nose: Normal Inspection, Normal Mucosa, No Blood Throat/Mouth: Normal Inspection, Normal Lips, Normal Voice, No Airway Compromise Head: Atraumatic, Normocephalic Neck: Normal Inspection, Non-Tender, Full Range of Motion Respiratory/Chest: No Respiratory Distress, Lungs Clear, Normal Breath Sounds, No Accessory Muscle Use, Chest Non-Tender Cardiovascular: Normal Peripheral Pulses, Regular Rate, Rhythm, No Edema, No Gallop, No JVD, No Murmur, No Rub GI/Abdominal: Normal Bowel Sounds, Soft, Non-Tender Back Exam: Normal Inspection Extremities: Normal Inspection, Normal Range of Motion, Non-Tender, Normal Capillary Refill, No Pedal Edema Neurological: Alert, Oriented, CN II-XII Intact, Normal Cognition, Normal Gait, No Motor/Sensory Deficits Psychiatric: Normal Affect, Normal Mood Skin Exam: Warm, Dry, Intact, Normal Color, No Rash #1 Interpretation EKG Date: 09/24/20 Time: 11:41 Rhythm: Other (SR) Rate (Beats/Min): 86 [place]: LAD-Left [place] Deviation P-Wave: Present QRS: Other (Old inferior Q waves) ST-T: Normal QT: Normal EKG Interpretation Comments: EKGs prior to 09/24/20 show SR. Today, 09/24/20 EKG from [facility] shows SVT with rate 156. Course - Vital Signs Last Recorded V/S: Last Vital Signs Temp 97.9 F 09/24/20 11:43 Pulse 86 09/24/20 11:43 Resp 20 09/24/20 11:43 BP 161/81 H 09/24/20 11:43 Pulse Ox 98 09/24/20 11:43 - Orders/Labs/Meds Orders: Active Orders 24 hr Category Date Time Status EKG 12 Lead [EKG Documentation Completion] [RC] STAT Care 09/24/20 11:35 Active Peripheral IV Care [RC] . DIRECTED Care 09/24/20 11:36 Active Chest 1V Frontal [CR] Stat Exams 09/24/20 11:35 Taken Sodium Chloride 0.9% [Saline Flush] Med 09/24/20 11:36 Active 10 ml FLUSH ASDIRECTED PRN Peripheral IV Insertion Adult [OM.PC] Stat Oth 09/24/20 11:36 Ordered Labs: Laboratory Tests 09/24/20 09/24/20 09/24/20 Range/Units 11:48 11:48 11:48 WBC 8.7 (5.0-10.0) 10^3/uL RBC 4.63 (4.6-6.2) 10^6/uL Hgb 14.2 D (14.0-18.0) g/dL Hct 41.0 (40.0-54.0) % MCV 88.6 (80-100) fL MCH 30.7 (27.0-34.0) pg MCHC 34.6 (33.0-35.0) g/dL Plt Count 278 (150-450) 10^3/uL Neut % (Auto) 72.5 (42.2-75.2) % Lymph % (Auto) 15.6 L (20.5-50.1) % [place] % (Auto) 8.6 H (2-8) % Eos % (Auto) 2.7 (1.0-3.0) % Baso % (Auto) 0.6 (0.0-1.0) % PT 9.9 (9.0-12.0) SEC INR 1.0 (0.9-1.2) APTT 23.6 (22.0-34.0) SEC Sodium 138 (136-145) mmol/L Potassium 4.1 (3.5-5.1) mmol/L Chloride 99 (98-107) mmol/L Carbon Dioxide 26 (21-32) mmol/L Anion Gap 17.1 H (7-13) mEq/L BUN 12 (7-18) mg/dL Creatinine 1.03 (0.70-1.30) mg/dL Est Cr Clr Drug Dosing 55.06 mL/min Estimated GFR (MDRD) > 60 BUN/Creatinine Ratio 11.7 (No establ ref range) Glucose 119 H (74-99) mg/dL Calcium 9.0 (8.5-10.1) mg/dL Magnesium 1.8 (1.8-2.4) mg/dL Total Bilirubin 0.5 (0.2-1.0) mg/dL AST 28 (15-37) U/L ALT 40 (16-63) U/L Alkaline Phosphatase 92 (46-116) U/L Troponin I < 0.017 (0.000-0.056) ng/mL B-Natriuretic Peptide 52 (0-100) pg/ml Total Protein 8.3 H (6.4-8.2) g/dL Albumin 3.9 (3.4-5.0) g/dL Globulin 4.4 Albumin/Globulin Ratio 0.9 TSH, Ultra Sensitive 1.07 (0.36-3.74) uIU/mL - Re-Assessments/Exams Free Text/Narrative Re-Assessment/Exam: 09/24/20 12:45 I spoke via phone with pt's PCP Erika Silveira. She will f/u with the pt and refer him for a Zio patch monitor and cardiology referral if needed. 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 Return to ER if you develop chest pain, lightheadedness, or fainting. Sepsis Event Note (ED) - Focused Exam Vital Signs: Vital Signs Temp Pulse Resp BP Pulse Ox 09/24/20 11:43 97.9 F 86 20 161/81 H 98 - My Orders Last 24 Hours: My Active Orders 09/24/20 11:35 EKG 12 Lead [EKG Documentation Completion] [RC] STAT Chest 1V Frontal [CR] Stat 09/24/20 11:36 Peripheral IV Care [RC] . DIRECTED Sodium Chloride 0.9% [Saline Flush] 10 ml FLUSH ASDIRECTED PRN Peripheral IV Insertion Adult [OM.PC] Stat - Assessment/Plan Last 24 Hours: My Active Orders 09/24/20 11:35 EKG 12 Lead [EKG Documentation Completion] [RC] STAT Chest 1V Frontal [CR] Stat 09/24/20 11:36 Peripheral IV Care [RC] . DIRECTED Sodium Chloride 0.9% [Saline Flush] 10 ml FLUSH ASDIRECTED PRN Peripheral IV Insertion Adult [OM.PC] Stat
[2020-09-24] MEDS ORDERED: Sodium Chloride 0.9% 10 ML Syringe FLUSH PRN (11:36)
[2020-09-24 11:55] VITALS: BP 161/81; PULSE 86
[2020-09-24 12:12] LABS: PTT,PARTIAL THROMBOPLSTIN TIME 23.6 SEC (22.0-34.0)
[2020-09-24 12:21] LABS: ANION GAP 17.1 mEq/L (7-13); CHLORIDE,CL 99 mmol/L (98-107); SODIUM,NA 138 mmol/L (136-145)
--- NOTE | 2020-09-24 12:47 | CR ---
EXAMINATION: Chest 1V Frontal SEX: Male AGE: 75 years CLINICAL HISTORY: 75-year-old male with recurrent cardiac arrhythmia. Comparison chest 17 August 2019. Interpretation: External telemetry monitor leads. Normal cardiac silhouette (size and configuration) unchanged since 17 August 2019 and 23 June 2019. Ectatic thoracic aorta. No pulmonary vascular congestion, cephalization of vascular flow, alveolar edema or dependent pleural effusion. No new lung mass or hilar lymphadenopathy. No focal lobar alveolar consolidation or peripheral interstitial "groundglass" lung densities. No pneumothorax or pneumomediastinum. AP bony thorax unremarkable. CONCLUSION: No acute new cardiopulmonary abnormality.
== END 2020-09-24 12:55 | disposition home or self-care (01) ==
LOC: DL.ED 11:30
DX: I47.1 Supraventricular tachycardia (principal); E78.00 Pure hypercholesterolemia, unspecified; I10 Essential (primary) hypertension; E11.9 Type 2 diabetes mellitus without complications; Z88.0 Allergy status to penicillin; Z79.82 Long term (current) use of aspirin; Z79.84 Long term (current) use of oral hypoglycemic drugs; Z79.899 Other long term (current) drug therapy
CPT/HCPCS: 36415; 71045; 80053; 83735; 83880; 84443; 84484; 85025; 85610; 85730; 93005; 93010; 99283; 99285-25

== ENCOUNTER 2023-01-06 15:51 | Emergency (ER) | payer MEDICARE, OTHER ==
[2023-01-06 16:04] VITALS: BP 117/97; PULSE 84
[2023-01-06 16:13] LABS: HEMATOCRIT 32.9 % (40.0-54.0); HEMOGLOBIN 11.1 g/dL (14.0-18.0); MEAN CORPUSCULAR HEMOGLOBIN 30.6 pg (27.0-34.0); MEAN CORPUSCULAR HGB CONC 33.7 g/dL (33.0-35.0); MEAN CORPUSCULAR VOLUME 90.6 fL (80-100); PLATELET COUNT,PLT 319 10^3/uL (150-450); RED BLOOD CELL COUNT 3.63 10^6/uL (4.6-6.2); WHITE BLOOD CELL COUNT,WBC 17.8 10^3/uL (5.0-10.0)
[2023-01-06] MEDS: Lidocaine 1% 5 ML VIAL INJECT ONE (16:13)
[2023-01-06] MEDS: Diphtheria,Pertussis(Acell),Tetanus Vaccine 0.5 ML Syringe IM ONE (16:18)
[2023-01-06 16:23] LABS: BASOPHILS PERCENT AUTO 0.2 % (0.0-1.0); EOSINOPHILS PERCENT AUTO 1.2 % (1.0-3.0); LYMPHOCYTES PERCENT AUTO 8.2 % (20.5-50.1); NEUTROPHILS PERCENT AUTO 83.4 % (42.2-75.2)
[2023-01-06 16:24] LABS: LYMPHOCYTES PERCENT MAN 10 % (20-50); MONOCYTES PERCENT MAN 3 % (2-8); SEG NEUTROPHILS PERCENT MAN 87 % (42-75)
[2023-01-06 16:34] LABS: ALBUMIN 3.1 g/dL (3.4-5.0); ANION GAP 21.1 mEq/L (7-13); BILIRUBIN TOTAL 0.5 mg/dL (0.2-1.0); BUN/CREATININE RATIO 10.7 (No establ ref range); CALCIUM 8.2 mg/dL (8.5-10.1); CREATININE 1.4 mg/dL (0.70-1.30); EST CRCL DRUG DOSING (CG) 39.24 mL/min; POTASSIUM,K 3.1 mmol/L (3.5-5.1); PROTEIN TOTAL,TP 6.5 g/dL (6.4-8.2)
[2023-01-06 16:40] LABS: A/G RATIO 0.91
[2023-01-06] MEDS: Sodium Chloride 0.9% 1,000 ML IV ONE ×2 (16:44→17:48)
[2023-01-06] MEDS: Diltiazem 25 MG/5 ML SDV IVPUSH ONE (16:58)
[2023-01-06] MEDS: Potassium Chloride 10 MEQ Tab.ER PO ONE (16:59)
[2023-01-06 17:41] LABS: EOSINOPHILS PERCENT AUTO 0.2 % (1.0-3.0); HEMATOCRIT 29.9 % (40.0-54.0); HEMOGLOBIN 10.1 g/dL (14.0-18.0); LYMPHOCYTES PERCENT AUTO 3.8 % (20.5-50.1); MEAN CORPUSCULAR HEMOGLOBIN 30.9 pg (27.0-34.0); MEAN CORPUSCULAR HGB CONC 33.8 g/dL (33.0-35.0); MEAN CORPUSCULAR VOLUME 91.4 fL (80-100); MONOCYTES PERCENT AUTO 5.3 % (2-8); NEUTROPHILS PERCENT AUTO 90.7 % (42.2-75.2); PLATELET COUNT,PLT 291 10^3/uL (150-450); RED BLOOD CELL COUNT 3.27 10^6/uL (4.6-6.2); WHITE BLOOD CELL COUNT,WBC 19.8 10^3/uL (5.0-10.0)
[2023-01-06] MEDS: Ketorolac 30 MG/ML SDV IVPUSH ONE (17:48)
[2023-01-06 18:07] LABS: LACTIC ACID 3.9 mmol/L (0.4-2.0)
[2023-01-06 18:59] LABS: APPEARANCE,URINE CLEAR (CLEAR); BILIRUBIN,URINE NEGATIVE (NEGATIVE); COLOR,URINE YELLOW (YELLOW); GLUCOSE,URINE 500 (NEGATIVE); KETONES,URINE NEGATIVE (NEGATIVE); LEUKOCYTE ESTERASE,URINE SMALL (NEGATIVE); NITRITE,URINE NEGATIVE (NEGATIVE); OCCULT BLOOD,URINE MODERATE (NEGATIVE); PROTEIN,URINE 30 (NEGATIVE); UROBILINOGEN,URINE 0.2 mg/dL (0.2-1.0)
[2023-01-06 19:07] LABS: BACTERIA,URINE FEW /HPF (0-FEW/HPF); EPITHELIAL CELLS,URINE MODERATE /HPF (NOT SEEN); MUCUS,URINE MODERATE /LPF (NOT SEEN)
[2023-01-06 19:44] LABS: LACTIC ACID 4.7 mmol/L (0.4-2.0)
== END 2023-01-06 21:15 | disposition home or self-care (01) ==
LOC: DL.ED 15:51
DX: S51.812A Laceration without foreign body of left forearm, initial encounter (principal); E86.0 Dehydration; E78.00 Pure hypercholesterolemia, unspecified; I10 Essential (primary) hypertension; E11.319 Type 2 diabetes mellitus with unspecified diabetic retinopathy without macular edema; E87.20 Acidosis, unspecified; N40.0 Benign prostatic hyperplasia without lower urinary tract symptoms; Z88.0 Allergy status to penicillin; Z79.899 Other long term (current) drug therapy; Z23 Encounter for immunization; W26.8XXA Contact with other sharp object(s), not elsewhere classified, initial encounter
CPT/HCPCS: 12013; 36415; 71045; 80053; 81001; 82947; 83605; 84484; 85025; 86140; 87040; 87086; 90471; 90715; 93005; 96361; 96374; 96375; 99284; A9270; J1885; J3490; J7030; 87088